=== PATIENT | male | born 1965 | race Caucasian/White ===

== ENCOUNTER 2018-07-01 06:17 | Day surgery (SDC) | payer BC ==
[2018-07-01] VITALS (14 sets, daily range): BP systolic 126–151; BP diastolic 67–86; PULSE 52–87; RESP 9–20; Ht 160 cm; Wt 51.4 kg
[~2018-07-01] VITALS: Ht 160 cm; Wt 51.4 kg
[~2018-07-01 06:17] MED LIST: CLINDAMYCIN 600 MG/D5W (PMX) 50 ML IVPB ONE; SOD CHLORIDE 0.9% 1,000 ML IV SCH; TRAM50TA2 PO; [UNRECOGNIZED DRUG - OTHER]
[2018-07-01] MEDS ORDERED: SEVOFLURANE 15 MIN ONE (07:00)
[2018-07-01] MEDS ORDERED: BACITRACIN/POLYMYXIN 28.35 GM OINT TOP ONE (07:18)
[2018-07-01] MEDS ORDERED: BUPIVACAINE 0.5%/EPI (SDV) 30 ML INJ ONE (07:18)
--- NOTE | 2018-07-01 07:40 | HPN ---
Date/Time of Note Date/Time of Note DATE: 07/01/18 TIME: 07:39 Interval H&P Admission Note Pt. seen H&P reviewed: No system changes ALFREDITO BANERJEE MD Jul 01, 2018 07:40
--- NOTE | 2018-07-01 07:40 | PREAC ---
Date/Time of Note Date/Time of Note DATE: 07/01/18 TIME: 07:38 Anesthesia Eval and Record Evaluation Time Pre-Procedure Interview DATE: 07/01/18 TIME: 07:38 Age 53 Sex male NPO: 8 hrs Preoperative diagnosis hemorrhoid Planned procedure hemorhoidectomy Past Medical History Past Medical History: None Surgery & Anesthesia Issues No known issue Meds Anticoagulation: No Beta Niki within 24 hr: No Reason Beta Niki not given: Pt. not on B-Niki Discontinued Reported Medications [Menoprofen] No Conflict Check, HS 11/29/11 Tramadol HCl (Tramadol HCl) 50 Mg Tablet, 50 MG PO HS 11/29/11 Current Medications Sodium Chloride 1,000 ml @ 75 mls/hr [id number] IV ; Start 07/01/18 at 06:00; Stop 07/01/18 at 19:19 Meds reviewed: Yes Allergies Coded Allergies: Penicillins (Verified Allergy, Unknown, 07/01/18) Allergies Reviewed: Yes Labs/Studies Labs Reviewed: Reviewed by anesthesiologist test: N/A Studies: ECG Pre-procedure Exam Last vitals Vital Signs Date Temp Pulse Resp B/P (MAP) Pulse Ox O2 O2 Flow FiO2 Time Delivery Rate 07/01/18 97.4 60 16 151/83 98 Room Air 06:58 (105) Airway: Adequate mouth opening, Adequate thyromental dist Mallampati: Mallampati II Teeth: Normal Lung: Normal Heart: Normal ASA Physical Status ASA physical status: 2 Emergency: None Planned Anesthetic General/MAC: ETT Planned Pain Management Parenteral pain med Pre-operative Attestations Prior to commencing anesthesia and surgery, the patient was re-evaluated, there was verification of: *The patient's identity *The results of appropriate recent lab work and preoperative vital signs *The above evaluation not changing prior to induction *Anesthetic plan, risk benefits, alternative and complications discussed with patient/family; questions answered; patient/family understands, accepts and wishes to proceed. JAKE CUMMINS MD Jul 01, 2018 07:40
[2018-07-01] MEDS ORDERED: FENTAnyl 50 MCG/ML VIAL ONE (07:48)
[2018-07-01] MEDS ORDERED: MIDAZOLAM 1 MG/ML 2 ML INJ ONE (07:48)
--- NOTE | 2018-07-01 08:43 | OPR ---
Date/Time of Note Date/Time of Note DATE: 07/01/18 TIME: 08:39 Operative Report Procedure Date: Jul 01, 2018 Preoperative Diagnosis Internal/external hemorrhoids with bleeding Postoperative Diagnosis Internal/external hemorrhoids with bleeding Operation/Procedure Performed 1. Internal/external hemorrhoidectomy 2. Rigid sigmoidoscopy Surgeon see signature line Or Manager None Anesthesia Type: general Anesthesiologist: JAKE CUMMINS MD Estimated Blood Loss: minimal Transfusion none Specimen Internal/external hemorrhoids Grafts/Implants none Complications none Pt Condition Post Procedure: stable Disposition: PACU Indications The patient is a 53-year-old male who presented to the office with complaints of bleeding hemorrhoids. Patient had tried and failed medical therapy without any relief. He was scheduled for exam under anesthesia, total internal/external hemorrhoidectomy and rigid sigmoidoscopy. All risks and benefits of the procedure including, but not limited to: Wound infection, excessive bleeding, prolonged wound healing, incontinence to stool/feces which may be temporary versus permanent, anal stricture, hemorrhoid recurrence, etc. were all explained to the patient in full detail. The patient fully understood and wished to proceed with the procedure. Informed consent was obtained. The patient was instructed to take enemas the day before and morning of surgery. Procedure Description Patient was brought to the operating room and kept on his stretcher. Bilateral sequential compression devices were placed on both lower extremities. A dose of broad-spectrum perioperative intravenous antibiotics was given. After the induction of smooth general anesthesia the patient was positioned in the prone position with all pressure points padded. The anus, perineum and buttocks were prepped and draped in standard surgical fashion. After performance of the surgical timeout 0.5% Marcaine with epinephrine was injected around the anus. Exam under anesthesia did not show any fissures or fistulas. External hemorrhoids were identified. Prolapsing internal hemorrhoids were identified. Attention was then turned towards the external hemorrhoids. They were grasped with a Calderon clamp. Incision was made in the perianal skin using the cut mode of the Bovie electrocautery. The external hemorrhoids were then transected at their base using the LigaSure device and passed off the field as specimen. Attention was then turned to the prolapsing internal hemorrhoids. They were eac h grasped using Calderon clamps and transected at their base using the LigaSure device and passed off the field as specimen. Hemostasis was then inspected for and noted to be adequate. Rigid sigmoidoscopy was then performed. Quality of the prep was good. There were no masses visualized in the areas of the distal rectum and anus which could be seen with the sigmoidoscope. The excision sites of the external hemorrhoids were then reapproximated using running locking 3-0 chromic sutures. The anal canal comfortably fit 2 fingers upon completion of the procedure. Further local anesthesia was then injected around the anus. The area was then irrigated. Xeroform gauze was applied as well as sterile dressings. The patient was then awoken from anesthesia and transferred to recovery room in stable condition. All counts were correct at the end of the case 2. ALFREDITO BANERJEE MD Jul 01, 2018 08:43
[2018-07-01] MEDS ORDERED: ONDANSETRON 4 MG INJ ONE (08:46)
[2018-07-01] MEDS ORDERED: CEFAZOLIN 1 GM INJ ONE (08:51)
[2018-07-01] MEDS ORDERED: NEOSTIGMINE 3 MG/3 ML SYRINGE ONE (08:51)
[2018-07-01] MEDS ORDERED: LIDOCAINE 2% (SDV) 5 ML INJ ONE (08:51)
[2018-07-01] MEDS ORDERED: GLYCOPYRROLATE 0.4 MG INJ ONE (08:51)
[2018-07-01] MEDS ORDERED: PROPOFOL 20 ML ONE (08:51)
[2018-07-01] MEDS ORDERED: IBUPROFEN 600 MG TAB PO PRN (09:00)
[2018-07-01] MEDS ORDERED: KETOROLAC 30 MG INJ IV PRN (09:00)
[2018-07-01] MEDS ORDERED: OXYCODONE/ACETAMINOPHEN (5/325) TAB PO PRN ×2 (09:00)
--- NOTE | 2018-07-01 09:04 | PAC ---
Date/Time of Note Date/Time of Note DATE: 07/01/18 TIME: 09:03 Post-Anesthesia Notes Post-Anesthesia Note Last documented vital signs Vital Signs Date Temp Pulse Resp B/P (MAP) Pulse Ox O2 O2 Flow FiO2 Time Delivery Rate 07/01/18 97.4 60 16 151/83 98 Room Air 06:58 (105) Activity: WNL Respiratory function: WNL Cardiovascular function: WNL Mental status: Baseline Pain reasonably controlled: Yes Hydration appropriate: Yes Nausea/Vomiting absent: Yes Comments BP:126/56,pulse:78, spo2:100%, T:98,8 JAKE CUMMINS MD Jul 01, 2018 09:04
[2018-07-01] MEDS ORDERED: HYDROmorphONE 1 MG/5 ML IV SYRINGE IV ONE (09:21)
[2018-07-01] MEDS ORDERED: DIPHENHYDRAMINE 50 MG INJ IV PRN (09:30)
[2018-07-01] MEDS ORDERED: METOCLOPRAMIDE 10 MG INJ IV PRN (09:30)
[2018-07-01] MEDS ORDERED: MEPERIDINE 25 MG INJ IV PRN (09:30)
[2018-07-01] MEDS ORDERED: HYDROmorphONE 1 MG/5 ML IV SYRINGE IV PRN ×2 (09:30)
[2018-07-01] MEDS ORDERED: FENTAnyl 50 MCG/ML VIAL IV PRN (09:30)
[2018-07-01] MEDS ORDERED: ONDANSETRON 4 MG INJ IV PRN (09:30)
[2018-07-05] MEDS ORDERED: OXYC-279 PO ×2 (19:55→23:54)
[2018-07-05] MEDS ORDERED: DOCU-144 PO (23:45)
== END 2018-07-01 10:35 | disposition home or self-care (01) ==
LOC: SDS 06:17
PROVIDERS: ATTEND Surgery
DX: K64.8 Other hemorrhoids (principal); K64.4 Residual hemorrhoidal skin tags
CPT/HCPCS: 46255; 88302; J0690; J1170; J2250; J2405; J2710; J3010; Z7512; Z7610